=== PATIENT | female | born 1975 | race Two or more races ===

== ENCOUNTER 2024-08-19 18:07 | Emergency (ER) | payer OTHER ==
[~2024-08-19] VITALS: Ht 160 cm; Wt 79.4 kg
[2024-08-19] MEDS ORDERED: ORPHENADRINE CITRATE 30 MG/ML AMPUL IM STA (19:44)
[2024-08-19] MEDS ORDERED: KETOROLAC TROMETHAMINE 30 MG VIAL IM STA (19:44)
== END 2024-08-19 21:30 | disposition home or self-care (01) ==
LOC: ER 18:09
DX: M54.89 Other dorsalgia (principal); M62.830 Muscle spasm of back; M51.369 Other intervertebral disc degeneration, lumbar region without mention of lumbar back pain or lower extremity pain

== ENCOUNTER → 2024-09-09 06:09 | Outpatient (CLI) | payer OTHER ==
[2024-09-09 07:06] LABS: HEMATOCRIT 37.9 % (36.0-45.00); HEMOGLOBIN 12.4 g/dL (12.0-15.00); MEAN CELL VOLUME 85.3 fL (80.00-100.00); MEAN CORPUSCULAR HEMOGLOBIN 27.9 pg (27.00-32.0); MEAN CORPUSCULAR HGB CONC 32.7 g/dl (32.0-36.0); PLATELET COUNT 299 K/uL (150-450); RED BLOOD COUNT 4.44 M/uL (4.00-6.00); RED CELL DISTRIBUTION WIDTH 13.2 % (11.5-14.5)
[2024-09-09 08:00] LABS: ALBUMIN 3.8 gm/dL (3.4-5.0); BILIRUBIN TOTAL 0.57 mg/dL (0.3-1.2); CREATININE SERUM 0.76 mg/dL (0.55-1.02); GFR 81.93; POTASSIUM 4.16 mEq/L (3.5-5.1); TOTAL PROTEIN 6.8 gm/dL (6.4-8.2)
[2024-09-09 09:19] LABS: URINE APPEARANCE Clear; URINE BILIRRUBIN Negative (NEGATIVE); URINE BLOOD Negative; URINE COLOR Yellow; URINE GLUCOSE Negative (NEGATIVE); URINE KETONE Negative (NEGATIVE); URINE LEUKOCYTE Moderate; URINE NITRATE Negative; URINE PROTEIN Negative (NEGATIVE); URINE UROBILINOGEN 0.2 E.U./dl
[2024-09-09 09:23] LABS: URINE BACTERIA 3549.4 uL (0.0-1933); URINE EPITHELIAL CELLS 64.3 uL (0.0-38.8); URINE RBC 17.4 uL (0.0-20.8); URINE WBC 113.6 uL (0.0-23.2)
[2024-09-09 12:18] LABS: ob NEGATIVE (NEGATIVE)
== END | disposition home or self-care (01) ==
LOC: LAB 06:09
PROVIDERS: ATTEND General Practice
DX: R30.0 Dysuria (principal); Z12.11 Encounter for screening for malignant neoplasm of colon

== ENCOUNTER 2024-09-09 07:06 | Outpatient (CLI) | payer OTHER | END 2024-09-09 07:12 | disposition home or self-care (01) | LOC: MAMO-SONO 07:06 | PROVIDERS: ATTEND General Practice | DX: N60.09 Solitary cyst of unspecified breast (principal); Z12.31 Encounter for screening mammogram for malignant neoplasm of breast ==

== ENCOUNTER 2025-08-03 18:26 | Emergency (ER) | payer OTHER ==
[~2025-08-03] VITALS: Ht 160 cm; Wt 72.6 kg
[2025-08-03] MEDS ORDERED: KETOROLAC TROMETHAMINE 30 MG VIAL IV ONE (18:45)
[2025-08-03] MEDS ORDERED: ORPHENADRINE CITRATE 30 MG/ML AMPUL IV ONE (18:45)
[2025-08-03] MEDS ORDERED: DEXAMETHASONE SODIUM PHOSP/PF 10 MG/ML VIAL IV ONE (18:45)
[2025-08-03] MEDS ORDERED: KETOROLAC TROMETHAMINE 30 MG VIAL ONE (19:36)
[2025-08-03] MEDS ORDERED: DEXAMETHASONE SODIUM PHOSPHATE 4 MG/ML VIAL ONE (19:37)
[2025-08-03] MEDS ORDERED: ORPHENADRINE CITRATE 30 MG/ML AMPUL ONE (19:37)
[2025-08-03 19:39] LABS: BASO % 0.6 % (0.1-1.2); EOS # 0.50 (0.04-0.54); EOS % 4.9 % (0.7-7.0); LYMPH # 3.11 (1.18-3.74); LYMPH % 30.6 % (19.3-53.1); MEAN PLATELET VOLUME 9.80 fl (9.4-12.4); MONO # 0.68 (0.24-0.82); MONO % 6.7 % (4.7-12.5); NEUT # 5.80 (1.56-6.13); NEUT % 57.1 % (34.0-71.1); RED CELL DISTRIBUTION WIDTH 13.0 % (11.6-14.4)
[2025-08-03 19:42] LABS: ERYTHROCYTE SEDIMENTATION RATE 25 mm/hr (0-20)
[2025-08-03 20:15] LABS: ALT/SGPT 15.0 U/L (12-78); AST/SGOT 11.0 U/L (15-37); BILIRUBIN TOTAL 0.33 mg/dL (0.3-1.2); BUN CREA RATIO 22.0 (7.0-25.0); CREATININE SERUM 0.64 mg/dL (0.55-1.02); GFR 99.47; GLOBULINA 3.1 G/DL (2.4-3.5); GLUCOSE FASTING 93.0 mg/dL (65-100); OSMOLALITY SERUM 280.0 MOSM/KG (275-295)
[2025-08-03] MEDS ORDERED: ZANAFLEX4 M1 PO (22:16)
[2025-08-03] MEDS ORDERED: KETO10TA2 PO (22:16)
[2025-08-03] MEDS ORDERED: ASPERCREME1 EACH TOP (22:16)
== END 2025-08-03 22:26 | disposition home or self-care (01) ==
LOC: ER 18:27
PROVIDERS: Student in an Organized Health Care Education/Training Program
DX: M79.18 Myalgia, other site (principal)